=== PATIENT | male | born 2000 | race Caucasian/White ===

== ENCOUNTER 2019-02-02 20:00 | Emergency (ER) | payer OTHER ==
[~2019-02-02] VITALS: Ht 180.3 cm; Wt 142.9 kg
[~2019-02-02 20:00] MED LIST: CEPHALEXIN 500500 M2 PO; NOHOMEMEDICATIONS; PREDNISONE 20 M20 MG PO
[2019-02-02] MEDS ORDERED: CENTANY30 GM TOP (20:49)
[2019-02-02 21:01] VITALS: BP 126/66
== END 2019-02-02 21:02 | disposition home or self-care (01) ==
LOC: M.ERS 20:00
DX: S51.811A Laceration without foreign body of right forearm, initial encounter (principal); F84.0 Autistic disorder; F95.2 Tourette's disorder; W25.XXXA Contact with sharp glass, initial encounter; Y92.89 Other specified places as the place of occurrence of the external cause; Y93.89 Activity, other specified; Y99.8 Other external cause status